=== PATIENT | male | born 1995 | race Caucasian/White ===

== ENCOUNTER 2017-06-25 14:22 | Emergency (ER) | payer OTHER ==
--- NOTE | 2017-06-25 16:36 | CR ---
Right ankle: 2 views of the right ankle were obtained. Comparison: No prior study. Ankle mortise is symmetric. No fracture, dislocation or other bony abnormality is seen. Impression: 1. No abnormality is identified on 2 view right ankle exam. Diagnostic code #1
--- NOTE | 2017-06-25 16:40 | EDM.PDOC ---
ED HPI GENERAL MEDICAL PROBLEM - General Chief Complaint: Lower Extremity Injury/Pain Stated Complaint: RT LEG INJURY Time Seen by Provider: 06/25/17 16:10 Source of Information: Reports: Patient History Limitations: Reports: No Limitations - History of Present Illness INITIAL COMMENTS - FREE TEXT/NARRATIVE: Patient presents ambulatory with co-workers for right ankle injury sustained at work today; states he twisted his ankle but unsure of how or which direction only that "I stepped wrong or something". Denies prior injury to this leg/ ankle. Sensation is intact. Has pain with bearing weight to ankle and lower leg , unable to really tell me where or point to area of pain just that "it hurts". Works for [employer]. Onset: Today Right Leg Pain Score (Numeric/FACES): 6 - Related Data Allergies Allergy/AdvReac Type Severity Reaction Status Date / Time No Known Allergies Allergy Verified 06/25/17 15:31 Home Meds: Home Meds . [No Known Home Meds] 06/25/17 [History] Past Medical History - Past Health History Medical/Surgical History: Denies Medical/Surgical History Social & Family History - Tobacco Use Smoking Status *Q: Never Smoker - Recreational Drug Use Recreational Drug Use: No Review of Systems - Review of Systems Review Of Systems: See Below Constitutional: Reports: No Symptoms Eyes: Reports: No Symptoms Ears: Reports: No Symptoms Respiratory: Reports: No Symptoms Cardiovascular: Reports: No Symptoms GI/Abdominal: Reports: No Symptoms Musculoskeletal: Reports: Leg Pain (right ankle) Neurological: Reports: No Symptoms ED EXAM, GENERAL - Physical Exam Exam: See Below Exam Limited By: No Limitations General Appearance: Alert, WD/WN, No Apparent Distress Eye Exam: Bilateral Eye: EOMI Head: Atraumatic, Normocephalic Neck: Normal Inspection Respiratory/Chest: No Respiratory Distress, Lungs Clear, Normal Breath Sounds Cardiovascular: Regular Rate, Rhythm Peripheral Pulses: 2+: Posterior Tibial (L), Posterior Tibial (R), Dorsalis Pedis (L), Dorsalis Pedis (R) GI/Abdominal: Normal Bowel Sounds Back Exam: CVA Tenderness (R) Extremities: Normal Inspection, No Pedal Edema, Normal Capillary Refill, Other ( right LE is without abnormalitiy to visual exam. Palpation is without pain to ankle joint, Squeeze of lower tibia does cause pain to distal 1/3 tibia/fibula. Tender to distal 1/3 tibia/fibula. ROM to ankle is decreased d/t pain. CMS otherwise +). No: Joint Swelling Neurological: Alert, Oriented Psychiatric: Normal Affect Course - Vital Signs Last Recorded V/S: Last Vital Signs Temp 97.8 F 06/25/17 15:25 Pulse 74 06/25/17 15:25 Resp 20 06/25/17 15:25 BP 156/102 H 06/25/17 15:25 Pulse Ox 96 06/25/17 15:25 - Orders/Labs/Meds Orders: Active Orders 24 hr Category Date Time Status Tibia Fibula Rt [CR] Stat Exams 06/25/17 15:51 Taken - Radiology Interpretation Free Text/Narrative:: Xrays of right ankle and tib/fib are without obvious fractures or abnormalities. Reviewed independtly by this provider. Await Radiologists final interp. Departure - Departure Time of Disposition: 16:40 Disposition: Home, Self-Care 01 Condition: Good Clinical Impression: High ankle sprain of right lower extremity Qualifiers: Encounter type: initial encounter Qualified Code(s): S93.431A - Sprain of tibiofibular ligament of right ankle, initial encounter - Discharge Information Instructions: Muscle Strain, [id number] Referrals: PCP,Not In Area [Primary Care Provider] - Forms: ED Department Discharge Additional Instructions: Xrays of ankle and lower leg are negative today. Please wear air cast when up and about for the next 7 days. If not improving by 7-10 days follow up at clinic for further evaluation Advil 3-4 tabs 3 times daily with food if needed for pain Elevate the leg Ice to the leg 20 minutes on, 3-4 times daily No lifting, pushing, pulling, carrying anything >20lbs x 1 week then can return to usual activity if ankle/leg pain is improved.
--- NOTE | 2017-06-26 08:32 | CR ---
Right tibia and fibula: AP and lateral views of the right tibia and fibula were obtained. Comparison: No prior study. No fracture, dislocation or other bony abnormality is seen. Impression: 1. No abnormality is appreciated on two-view right tibia and fibula study. Diagnostic code #1
== END 2017-06-25 16:59 | disposition home or self-care (01) ==
LOC: JD.ED 14:22
DX: S93.431A Sprain of tibiofibular ligament of right ankle, initial encounter (principal); X50.1XXA Overexertion from prolonged static or awkward postures, initial encounter; Y99.0 Civilian activity done for income or pay
CPT/HCPCS: 73590-26-RT; 73590-RT; 73600-26-RT; 73600-RT; 99283